=== PATIENT | male | born 1980 | race African-American/Black ===

== ENCOUNTER 2020-05-12 16:23 | Inpatient (IN) ==
[2020-05-12] MEDS ORDERED: ONDANSETRON 4 MG/2 ML VIAL IV STA (18:53)
[2020-05-12] MEDS ORDERED: SODIUM CHLORIDE 0.9% 500 ML IV STA (18:53)
[2020-05-12] MEDS ORDERED: hydrALAZINE 20 MG/1 ML VIAL IV STA (18:53)
[2020-05-12] MEDS ORDERED: HYDROmorphone 2 MG/1 ML VIAL IV STA (18:53)
[2020-05-12] MEDS ORDERED: PANTOPRAZOLE 40 MG VIAL IV STA (18:53)
[2020-05-12 18:57] LABS: Basophils % 0.2 % (0.0-0.8); Eosinophils % 0.3 % (0.00-10.9); Hematocrit 39.4 VOL% (42.0-52.0); Hemoglobin 13.6 GM/DL (14.0-18.0); Immature Granulocytes % 0.3 %; Immature Granulocytes Absolute 0.03 #; Lymphocytes # 0.7 10*3/uL (1.4-4.0); Lymphocytes % 7.7 % (21.2-54.2); Mean Corpuscular HGB Conc 34.5 GM/DL (32-36); Mean Corpuscular Volume 92.3 FL (87-102); Monocytes % 9.1 % (1.7-12.7); Neutrophils % 82.4 % (38.7-73.9); Platelet Count 182 T/CUMM (130-400); Red Blood Count 4.27 MC/CUMM (3.8-5.5); White Blood Count 9.3 T/CUMM (4-12)
[2020-05-12 19:32] LABS: Bilirubin,Total 7.8 MG/DL (0.2-1.0); Calcium 9.8 MG/DL (8.5-10.1); Osmolality,Calculated 275.8 MOS/KG (273-304); Total Protein 7.6 G/DL (6.4-8.3)
[2020-05-12] MEDS ORDERED: POTASSIUM CHLORIDE 20 MEQ TABLET PO STA (19:44)
[2020-05-12] MEDS ORDERED: LABETALOL 20 MG/4 ML SYRINGE IV STA (19:51)
[2020-05-12] MEDS ORDERED: DEXTROSE 50% 25 GM/50 ML VIAL IV PRN (20:43)
[2020-05-12] MEDS ORDERED: GLUCAGON 1 MG VIAL IM PRN (20:43)
[2020-05-12] MEDS ORDERED: ONDANSETRON 4 MG/2 ML VIAL IV PRN (20:43)
[2020-05-12 21:14] LABS: Risk Ratio 2.24; Thyroid Stimulating Hormone 0.387 uIU/ml (0.358-3.74); VLDL CHOLESTEROL 17.4 MG/DL
[2020-05-12] MEDS ORDERED: cloNIDine 0.3 MG/24 HR PATCH TRANSDERM SCH (21:30)
[2020-05-12] MEDS ORDERED: THIAMINE INJ 100 MG, FOLIC ACID INJ 1 MG, MULTIVITAMIN INJ 10 ML in SODIUM CHLORIDE 0.9... IV ONE (21:30)
[2020-05-12 21:44] LABS: Folate 16.3 NG/ML (5.4-24.0); Vitamin B12 > 2000 PG/ML (211-911)
[2020-05-12 22:56] LABS: PT Patient Result 10.5 SECS (9.8-11.9); Partial Thromboplastin Time 25.9 SECS (23.9-33.8)
[2020-05-12] MEDS: chlordiazePOXIDE 25 MG CAPSULE PO SCH (23:34)
[2020-05-12] MEDS: HYDROmorphone 2 MG/1 ML VIAL IV PRN (23:35)
[2020-05-13 00:27] LABS: Hepatitis B Core IgM Quant 0.23 Index; Hepatitis B Surface Ag Quant < 0.10 Index; Hepatitis B Surface Ag Result Negative (Negative); Hepatitis C Virus Ab Quant 0.13 Index; Hepatitis C Virus Ab Result Negative (Negative)
[2020-05-13 04:17] LABS: Basophils % 0.2 % (0.0-0.8); Eosinophils # 0.1 10*3/uL (0.0-0.87); Eosinophils % 0.7 % (0.00-10.9); Hematocrit 37.8 VOL% (42.0-52.0); Hemoglobin 13.1 GM/DL (14.0-18.0); Immature Granulocytes % 0.4 %; Immature Granulocytes Absolute 0.04 #; Lymphocytes # 0.8 10*3/uL (1.4-4.0); Lymphocytes % 8.1 % (21.2-54.2); Mean Corpuscular HGB Conc 34.7 GM/DL (32-36); Mean Corpuscular Volume 92.6 FL (87-102); Mean Platelet Volume 11.5 FL (9.6-12.0); Monocytes % 10.4 % (1.7-12.7); Neutrophils % 80.2 % (38.7-73.9); Platelet Count 166 T/CUMM (130-400); Red Blood Count 4.08 MC/CUMM (3.8-5.5); Red Cell Distribution Width 14.1 % (9.3-17.3); White Blood Count 10.3 T/CUMM (4-12)
[2020-05-13] MEDS: chlordiazePOXIDE 25 MG CAPSULE PO SCH ×4 (04:27→20:36)
[2020-05-13] MEDS: HYDROmorphone 2 MG/1 ML VIAL IV PRN ×4 (04:27→18:08)
[2020-05-13 04:36] LABS: Albumin 3.4 G/DL (3.4-5.0); Bilirubin,Total 6.5 MG/DL (0.2-1.0); Total Protein 7.1 G/DL (6.4-8.3)
[2020-05-13] MEDS: POTASSIUM CHLORIDE INJ 40 MEQ in LACTATED RINGERS 1,000 ML IV SCH ×3 (06:46→17:03)
[2020-05-13] MEDS: PANTOPRAZOLE 40 MG VIAL IV SCH (09:42)
[2020-05-13] MEDS: hydrALAZINE 20 MG/1 ML VIAL IV PRN ×3 (09:42→20:35)
[2020-05-13] MEDS: CIPROFLOXACIN INJ 400 MG in PREMIX 1 EACH IV SCH ×2 (09:48→20:35)
[2020-05-13] MEDS: hydroCHLOROthiazide 25 MG TABLET PO SCH (12:47)
[2020-05-13 14:21] LABS: Apearance,Urine CLEAR (Clear); Bilirubin,Urine Negative (Negative); Blood, Urine Negative (Negative); Glucose,Urine (UA) 50 mg/dL (Negative); Ketones,Urine 5 mg/dL (Negative); Nitrite,Urine Negative (Negative); Protein,Urine 30 MG/DL; RBC,Urine 1 /HPF (0-4); Urine Color Amber (Yellow); Urine Specific Gravity 1.015 (1.001-1.035); WBC,Urine <1 /HPF (0-6)
[2020-05-13 16:29] LABS: Barbiturates Screen,Urine Negative (Negative); Benzodiazepines Screen,Urine Positive (Negative); Cannabinoid Screen,Urine Positive (Negative); Opiate Screen,Urine Positive (Negative); Phencyclidine Screen,Urine Negative (Negative)
[2020-05-13] MEDS: carvediloL 6.25 MG TABLET PO SCH (18:08)
[2020-05-13] MEDS ORDERED: carvediloL 6.25 MG TABLET PO SCH (21:00)
[2020-05-14] MEDS: POTASSIUM CHLORIDE INJ 40 MEQ in LACTATED RINGERS 1,000 ML IV SCH (00:11)
[2020-05-14] MEDS: hydrALAZINE 20 MG/1 ML VIAL IV PRN (00:25)
[2020-05-14] MEDS ORDERED: POTASSIUM CHLORIDE INJ 40 MEQ in LACTATED RINGERS 1,000 ML IV SCH (01:30)
[2020-05-14] MEDS: chlordiazePOXIDE 25 MG CAPSULE PO SCH ×3 (05:17→21:28)
[2020-05-14 05:23] LABS: Basophils % 0.1 % (0.0-0.8); Eosinophils % 0.2 % (0.00-10.9); Hematocrit 40.1 VOL% (42.0-52.0); Hemoglobin 13.8 GM/DL (14.0-18.0); Immature Granulocytes % 0.5 %; Immature Granulocytes Absolute 0.08 #; Lymphocytes # 0.8 10*3/uL (1.4-4.0); Lymphocytes % 5.4 % (21.2-54.2); Mean Corpuscular HGB Conc 34.4 GM/DL (32-36); Mean Corpuscular Volume 92.6 FL (87-102); Mean Platelet Volume 10.9 FL (9.6-12.0); Monocytes % 10.4 % (1.7-12.7); Neutrophils % 83.4 % (38.7-73.9); Platelet Count 193 T/CUMM (130-400); Red Blood Count 4.33 MC/CUMM (3.8-5.5); Red Cell Distribution Width 14.5 % (9.3-17.3)
[2020-05-14 05:50] LABS: Albumin 3.1 G/DL (3.4-5.0); Bilirubin,Total 2.8 MG/DL (0.2-1.0); Calcium 9.1 MG/DL (8.5-10.1); Osmolality,Calculated 260.8 MOS/KG (273-304); Total Protein 7.3 G/DL (6.4-8.3)
[2020-05-14] MEDS: THIAMINE 100 MG TABLET PO SCH (09:34)
[2020-05-14] MEDS: carvediloL 6.25 MG TABLET PO SCH ×2 (09:34→16:07)
[2020-05-14] MEDS: FOLIC ACID 1 MG TABLET PO SCH (09:35)
[2020-05-14] MEDS: PANTOPRAZOLE 40 MG VIAL IV SCH (09:44)
[2020-05-14] MEDS: CIPROFLOXACIN INJ 400 MG in PREMIX 1 EACH IV SCH ×2 (09:45→21:28)
[2020-05-14] MEDS: hydroCHLOROthiazide 25 MG TABLET PO SCH (12:42)
[2020-05-14] MEDS: HYDROmorphone 2 MG/1 ML VIAL IV PRN (18:36)
[2020-05-15 06:23] LABS: Basophils # 0.1 10*3/uL (0.0-0.2); Basophils % 0.5 % (0.0-0.8); Eosinophils # 0.2 10*3/uL (0.0-0.87); Eosinophils % 1.5 % (0.00-10.9); Hematocrit 40.4 VOL% (42.0-52.0); Hemoglobin 13.7 GM/DL (14.0-18.0); Immature Granulocytes % 0.6 %; Immature Granulocytes Absolute 0.06 #; Lymphocytes # 0.9 10*3/uL (1.4-4.0); Lymphocytes % 8.8 % (21.2-54.2); Mean Corpuscular HGB Conc 33.9 GM/DL (32-36); Mean Corpuscular Volume 94.8 FL (87-102); Mean Platelet Volume 10.7 FL (9.6-12.0); Monocytes % 11.3 % (1.7-12.7); Neutrophils % 77.3 % (38.7-73.9); Platelet Count 188 T/CUMM (130-400); Red Blood Count 4.26 MC/CUMM (3.8-5.5); Red Cell Distribution Width 14.8 % (9.3-17.3); White Blood Count 10.3 T/CUMM (4-12)
[2020-05-15 06:57] LABS: Bilirubin,Total 1.4 MG/DL (0.2-1.0); Osmolality,Calculated 272.1 MOS/KG (273-304); Total Protein 7.4 G/DL (6.4-8.3)
[2020-05-15] MEDS ORDERED: cefOXitin 2,000 MG in SYRINGE 1 EACH IV ONE (07:32)
[2020-05-15] MEDS: CIPROFLOXACIN INJ 400 MG in PREMIX 1 EACH IV SCH ×2 (09:37→20:56)
[2020-05-15] MEDS: carvediloL 6.25 MG TABLET PO SCH ×2 (09:40→16:55)
[2020-05-15] MEDS: chlordiazePOXIDE 25 MG CAPSULE PO SCH (09:40)
[2020-05-15] MEDS: PANTOPRAZOLE 40 MG VIAL IV SCH (09:41)
[2020-05-15] MEDS: THIAMINE 100 MG TABLET PO SCH (09:41)
[2020-05-15] MEDS: FOLIC ACID 1 MG TABLET PO SCH (09:41)
[2020-05-15] MEDS: hydroCHLOROthiazide 25 MG TABLET PO SCH (12:33)
[2020-05-15] MEDS: POTASSIUM CHLORIDE 20 MEQ TABLET PO PRN ×3 (15:07→18:39)
[2020-05-15] MEDS: HYDROmorphone 2 MG/1 ML VIAL IV PRN (20:53)
[2020-05-16] MEDS ORDERED: POTASSIUM CHLORIDE RIDER 20 MEQ in PREMIX 1 EACH IV PRN (01:46)
[2020-05-16] MEDS: POTASSIUM CHLORIDE RIDER 10 MEQ in PREMIX 1 EACH IV PRN ×3 (02:02→04:49)
[2020-05-16 05:46] LABS: Basophils % 0.4 % (0.0-0.8); Eosinophils # 0.2 10*3/uL (0.0-0.87); Eosinophils % 2.4 % (0.00-10.9); Immature Granulocytes % 0.3 %; Immature Granulocytes Absolute 0.03 #; Lymphocytes # 0.8 10*3/uL (1.4-4.0); Lymphocytes % 9.3 % (21.2-54.2); Mean Corpuscular HGB Conc 34.2 GM/DL (32-36); Mean Corpuscular Volume 93.6 FL (87-102); Mean Platelet Volume 10.8 FL (9.6-12.0); Monocytes % 10.5 % (1.7-12.7); Neutrophils % 77.1 % (38.7-73.9); Platelet Count 239 T/CUMM (130-400); Red Blood Count 4.06 MC/CUMM (3.8-5.5); Red Cell Distribution Width 14.4 % (9.3-17.3)
[2020-05-16 06:11] LABS: Albumin 2.8 G/DL (3.4-5.0); Bilirubin,Total 1.6 MG/DL (0.2-1.0); Calcium 9.1 MG/DL (8.5-10.1); Osmolality,Calculated 273.8 MOS/KG (273-304); Total Protein 7.3 G/DL (6.4-8.3)
[2020-05-16] MEDS ORDERED: cefOXitin 2,000 MG in SYRINGE 1 EACH IV ONE (06:30)
[2020-05-16] MEDS ORDERED: TISSUE ADHESIVE 1 EACH APPLICATOR TOP ONE (08:10)
[2020-05-16] MEDS ORDERED: LIDOCAINE 1%/EPI INJ 20 ML VIAL ONE (08:10)
[2020-05-16] MEDS ORDERED: BUPIVACAINE MPF 0.25% 30 ML VIAL ONE (08:10)
[2020-05-16] MEDS ORDERED: HYDROmorphone 2 MG/1 ML VIAL ONE (10:02)
[2020-05-16] MEDS ORDERED: hydrALAZINE 20 MG/1 ML VIAL ONE (10:03)
[2020-05-16] MEDS ORDERED: ONDANSETRON 4 MG/2 ML VIAL ONE ×2 (10:03→10:17)
[2020-05-16] MEDS ORDERED: MEPERIDINE 25 MG/1 ML VIAL IV PRN (10:08)
[2020-05-16] MEDS ORDERED: ONDANSETRON 4 MG/2 ML VIAL IV PRN (10:08)
[2020-05-16] MEDS ORDERED: HYDROmorphone 2 MG/1 ML VIAL IV PRN (10:08)
[2020-05-16] MEDS ORDERED: hydrALAZINE 20 MG/1 ML VIAL IV ONE (10:10)
[2020-05-16] MEDS ORDERED: propofoL 200 MG/20 ML VIAL IV ONE (10:15)
[2020-05-16] MEDS ORDERED: fentaNYL 100 MCG/2 ML VIAL ONE (10:16)
[2020-05-16] MEDS ORDERED: CALCIUM CHLORIDE 1,000 MG/10 ML VIAL IV ONE (10:16)
[2020-05-16] MEDS ORDERED: KETAMINE 500 MG/10 ML VIAL ONE (10:16)
[2020-05-16] MEDS ORDERED: SEVOFLURANE 1 UNIT/15 MINUTE INH ONE (10:16)
[2020-05-16] MEDS ORDERED: ALBUMIN 5% 12.5 GM/250 ML VIAL IV ONE (10:16)
[2020-05-16] MEDS ORDERED: LIDOCAINE 2% 5 ML VIAL ONE (10:16)
[2020-05-16] MEDS ORDERED: KETOROLAC 30 MG/1 ML VIAL ONE (10:17)
[2020-05-16] MEDS ORDERED: ROCURONIUM 100 MG/10 ML VIAL IV ONE (10:17)
[2020-05-16] MEDS ORDERED: LACTATED RINGERS 1,000 ML IV ONE (10:17)
[2020-05-16] MEDS ORDERED: PHENYLEPHRINE 10 MG/1 ML VIAL IV ONE (10:17)
[2020-05-16] MEDS ORDERED: DEXAMETHASONE 4 MG/1 ML VIAL ONE (10:17)
[2020-05-16] MEDS ORDERED: LABETALOL 100 MG/20 ML VIAL IV ONE (10:17)
[2020-05-16] MEDS ORDERED: SUCCINYLCHOLINE 200 MG/10 ML VIAL ONE (10:17)
[2020-05-16] MEDS ORDERED: SODIUM CHLORIDE 0.9% 100 ML IV ONE (10:17)
[2020-05-16] MEDS ORDERED: LACTATED RINGERS 1,000 ML IV SCH (10:30)
[2020-05-16] MEDS: PANTOPRAZOLE 40 MG VIAL IV SCH (11:26)
[2020-05-16] MEDS: CIPROFLOXACIN INJ 400 MG in PREMIX 1 EACH IV SCH ×2 (11:26→20:23)
[2020-05-16] MEDS: carvediloL 6.25 MG TABLET PO SCH ×2 (12:29→16:38)
[2020-05-16] MEDS: FOLIC ACID 1 MG TABLET PO SCH (12:44)
[2020-05-16] MEDS: THIAMINE 100 MG TABLET PO SCH (12:44)
[2020-05-16] MEDS: hydroCHLOROthiazide 25 MG TABLET PO SCH (12:45)
[2020-05-16] MEDS: HYDROmorphone 2 MG/1 ML VIAL IV PRN (14:40)
[2020-05-16] MEDS ORDERED: KETOROLAC 30 MG/1 ML VIAL IV ONE (15:22)
[2020-05-16] MEDS: KETOROLAC 15 MG/1 ML VIAL IV PRN (23:22)
[2020-05-17 05:19] LABS: Basophils % 0.4 % (0.0-0.8); Eosinophils # 0.1 10*3/uL (0.0-0.87); Hematocrit 36.3 VOL% (42.0-52.0); Hemoglobin 12.5 GM/DL (14.0-18.0); Immature Granulocytes % 0.5 %; Immature Granulocytes Absolute 0.05 #; Lymphocytes # 0.8 10*3/uL (1.4-4.0); Lymphocytes % 8.1 % (21.2-54.2); Mean Corpuscular HGB Conc 34.4 GM/DL (32-36); Mean Corpuscular Volume 94.3 FL (87-102); Mean Platelet Volume 10.2 FL (9.6-12.0); Monocytes % 12.3 % (1.7-12.7); Neutrophils % 77.7 % (38.7-73.9); Platelet Count 268 T/CUMM (130-400); Red Blood Count 3.85 MC/CUMM (3.8-5.5); Red Cell Distribution Width 14.4 % (9.3-17.3)
[2020-05-17 05:37] LABS: Bilirubin,Total 2.2 MG/DL (0.2-1.0); Calcium 9.1 MG/DL (8.5-10.1); Total Protein 7.4 G/DL (6.4-8.3)
[2020-05-17] MEDS: KETOROLAC 15 MG/1 ML VIAL IV PRN (06:09)
[2020-05-17] MEDS: CIPROFLOXACIN INJ 400 MG in PREMIX 1 EACH IV SCH ×2 (09:06→20:57)
[2020-05-17] MEDS: PANTOPRAZOLE 40 MG VIAL IV SCH (09:07)
[2020-05-17] MEDS: THIAMINE 100 MG TABLET PO SCH (09:07)
[2020-05-17] MEDS: carvediloL 6.25 MG TABLET PO SCH ×2 (09:07→16:54)
[2020-05-17] MEDS: POTASSIUM CHLORIDE 20 MEQ TABLET PO PRN ×3 (09:09→15:21)
[2020-05-17] MEDS ORDERED: LACTATED RINGERS 1,000 ML IV ONE (10:03)
[2020-05-17] MEDS: FOLIC ACID 1 MG TABLET PO SCH (10:18)
[2020-05-17] MEDS: hydroCHLOROthiazide 25 MG TABLET PO SCH (11:11)
[2020-05-17] MEDS: POTASSIUM CHLORIDE 20 MEQ TABLET PO SCH ×2 (13:04→22:05)
[2020-05-17] MEDS: hydrALAZINE 20 MG/1 ML VIAL IV PRN (15:55)
[2020-05-17] MEDS ORDERED: ACETAMINOPHEN 325 MG TABLET PO PRN (16:49)
[2020-05-17] MEDS: ENOXAPARIN 40 MG/0.4 ML SYRINGE SUBCUT SCH (17:55)
[2020-05-18] MEDS: HYDROmorphone 2 MG/1 ML VIAL IV PRN (00:35)
[2020-05-18 06:33] LABS: Basophils # 0.1 10*3/uL (0.0-0.2); Basophils % 0.4 % (0.0-0.8); Eosinophils # 0.1 10*3/uL (0.0-0.87); Eosinophils % 0.7 % (0.00-10.9); Hematocrit 32.6 VOL% (42.0-52.0); Hemoglobin 11.1 GM/DL (14.0-18.0); Immature Granulocytes % 0.4 %; Immature Granulocytes Absolute 0.05 #; Lymphocytes # 0.9 10*3/uL (1.4-4.0); Mean Corpuscular Volume 94.2 FL (87-102); Mean Platelet Volume 10.1 FL (9.6-12.0); Monocytes % 15.4 % (1.7-12.7); Neutrophils % 75.1 % (38.7-73.9); Platelet Count 278 T/CUMM (130-400); Red Blood Count 3.46 MC/CUMM (3.8-5.5); Red Cell Distribution Width 14.3 % (9.3-17.3); White Blood Count 11.2 T/CUMM (4-12)
[2020-05-18 07:04] LABS: Albumin 2.6 G/DL (3.4-5.0); Bilirubin,Total 1.1 MG/DL (0.2-1.0); Calcium 8.6 MG/DL (8.5-10.1); Osmolality,Calculated 272.1 MOS/KG (273-304); Total Protein 7.2 G/DL (6.4-8.3)
[2020-05-18] MEDS: CIPROFLOXACIN INJ 400 MG in PREMIX 1 EACH IV SCH ×2 (09:03→21:30)
[2020-05-18] MEDS: POTASSIUM CHLORIDE 20 MEQ TABLET PO PRN ×2 (09:04→16:25)
[2020-05-18] MEDS: FOLIC ACID 1 MG TABLET PO SCH (09:04)
[2020-05-18] MEDS: POTASSIUM CHLORIDE 20 MEQ TABLET PO SCH ×2 (09:04→21:31)
[2020-05-18] MEDS: THIAMINE 100 MG TABLET PO SCH (09:05)
[2020-05-18] MEDS: PANTOPRAZOLE 40 MG VIAL IV SCH (09:05)
[2020-05-18] MEDS: carvediloL 6.25 MG TABLET PO SCH (09:05)
[2020-05-18] MEDS: KETOROLAC 15 MG/1 ML VIAL IV PRN (11:17)
[2020-05-18] MEDS ORDERED: MAGNESIUM HYDROXIDE SUSP 30 ML UDCUP PO ONE (15:29)
[2020-05-18] MEDS: carvediloL 12.5 MG TABLET PO SCH (16:25)
[2020-05-18] MEDS: ENOXAPARIN 40 MG/0.4 ML SYRINGE SUBCUT SCH (17:25)
[2020-05-18] MEDS: POLYETHYLENE GLYCOL POWDER 17 GM PACK PO SCH (21:30)
[2020-05-18] MEDS: LACTULOSE 20 GM/30 ML UDCUP PO SCH (21:30)
[2020-05-18] MEDS: MAGNESIUM OXIDE 400 MG TABLET PO SCH (21:31)
[2020-05-18] MEDS: DOCUSATE SODIUM 100 MG CAPSULE PO SCH (21:31)
[2020-05-18] MEDS: cloNIDine 0.1 MG TABLET PO SCH (21:31)
[2020-05-19 04:22] VITALS: BP 126/71
[2020-05-19 05:51] LABS: Basophils % 0.4 % (0.0-0.8); Eosinophils # 0.1 10*3/uL (0.0-0.87); Eosinophils % 1.4 % (0.00-10.9); Hematocrit 32.6 VOL% (42.0-52.0); Immature Granulocytes % 0.5 %; Immature Granulocytes Absolute 0.05 #; Lymphocytes # 1.1 10*3/uL (1.4-4.0); Lymphocytes % 10.8 % (21.2-54.2); Mean Corpuscular HGB Conc 33.7 GM/DL (32-36); Mean Corpuscular Volume 94.8 FL (87-102); Mean Platelet Volume 10.2 FL (9.6-12.0); Monocytes % 14.9 % (1.7-12.7); Platelet Count 296 T/CUMM (130-400); Red Blood Count 3.44 MC/CUMM (3.8-5.5); Red Cell Distribution Width 14.1 % (9.3-17.3); White Blood Count 9.7 T/CUMM (4-12)
[2020-05-19 06:05] LABS: Albumin 2.6 G/DL (3.4-5.0); Bilirubin,Total 0.6 MG/DL (0.2-1.0); Calcium 9.2 MG/DL (8.5-10.1); Total Protein 7.5 G/DL (6.4-8.3)
[2020-05-19] MEDS: CIPROFLOXACIN INJ 400 MG in PREMIX 1 EACH IV SCH (08:16)
[2020-05-19] MEDS: cloNIDine 0.1 MG TABLET PO SCH (08:45)
[2020-05-19] MEDS: carvediloL 12.5 MG TABLET PO SCH (08:45)
[2020-05-19] MEDS: FOLIC ACID 1 MG TABLET PO SCH (08:45)
[2020-05-19] MEDS: THIAMINE 100 MG TABLET PO SCH (08:45)
[2020-05-19] MEDS: POLYETHYLENE GLYCOL POWDER 17 GM PACK PO SCH (08:46)
[2020-05-19] MEDS: LACTULOSE 20 GM/30 ML UDCUP PO SCH (08:46)
[2020-05-19] MEDS: DOCUSATE SODIUM 100 MG CAPSULE PO SCH (08:46)
[2020-05-19] MEDS ORDERED: CHOLECALCIFEROL 1,000 UNIT TABLET PO SCH (09:00)
[2020-05-19] MEDS: MAGNESIUM OXIDE 400 MG TABLET PO SCH (09:02)
[2020-05-19] MEDS: POTASSIUM CHLORIDE 20 MEQ TABLET PO SCH (09:02)
[2020-05-19] MEDS: PANTOPRAZOLE 40 MG VIAL IV SCH (09:32)
== END 2020-05-19 10:10 | disposition home or self-care (01) | DRG 853 ==
LOC: N.ED 16:23 → N.EDINP 20:29 → SUATTDRO 20:29 → N.TELEN 21:25
PROVIDERS: ADMIT Family Medicine; ATTEND Hospitalist
PROC: LAPCHOL (2020-05-16 08:26)